=== PATIENT | male | born 1995 | race Caucasian/White ===

== ENCOUNTER 2020-06-19 08:02 | Emergency (ER) | payer OTHER, SELFPAY ==
[2020-06-19 08:10] VITALS: BP 153/82; PULSE 84; RESP 18; TEMP 36.9; O2SAT 100
--- NOTE | 2020-06-19 08:15 | ED.URI ---
HPI - URI/Sore Throat General Chief Complaint: Upper Respiratory Infection Stated Complaint: NASAL CONGESTION/ITCHY THROAT/EARACHE Time Seen by Provider: 06/19/20 08:16 Source: patient Mode of arrival: ambulatory Limitations: no limitations History of Present Illness HPI Narrative: Torres Nolen is a 25 yo male with symptoms of L ear pain (resolved), congestion, tickle in throat since Sat. Has taken Tylenol cold/flu with no relief. States he had difficulty laying flat last night and sleeping Related Data Allergies Allergy/AdvReac Type Severity Reaction Status Date / Time amoxicillin Allergy Unknown Verified 06/19/20 08:17 Penicillins Allergy Unknown Verified 06/19/20 08:17 Review of Systems Review of Systems: Narrative: CONSTITUTIONAL: Denies fever, chills, sweats. EYES: Denies visual changes, redness, discharge. ENT: Denies rhinorrhea, has congestion, sore throat, had left otalgia. CARDIOVASCULAR: Denies chest pain, palpitations, edema. RESPIRATORY: Denies dyspnea, wheezing, cough GASTROINTESTINAL: Denies abdominal pain, nausea, vomiting, diarrhea. GENITOURINARY: Denies dysuria, hematuria, abnormal discharge SKIN: Denies rash or itching. NEUROLOGIC: Denies numbness, or focal weakness. PSYCHIATRIC: Denies anxiety or depression. [facility] Past Medical History Medical History No acute medical problems Family History Family History Other No acute medical problems Social History Social History (Updated 06/19/20 @ 08:45 by Lori Sofia CNP) Smoking packs per day: 1.0 Smoking cigarettes per day: 20.0 Smoking status: Current every day smoker Alcohol intake: current Comments At time of signature, I agree with nursing past medical, surgical, social and family history. There is no relevant family history pertinent to the presenting complaint. Exam Narrative: Exam Narrative: GENERAL: This is a well-nourished, well-developed patient, in mild distress. HEAD: normocephalic, atraumatic. EYES:Sclera clear/white. Vision is grossly intact. EARS: External ears normal, auditory canals clear on R, on L cotton in canal, erythematous without drainage, TMs normal without perforation. Hearing grossly intact. NOSE: External nose normal without nasal discharge, nares with redness, mild rhinorrhea. THROAT: Mucous membranes moist, posterior pharynx pink moist NECK: Neck supple, non-tender CARDIOVASCULAR: Regular rate and rhythm without murmurs, gallops, or rubs. RESPIRATORY: Clear to auscultation. Breath sounds equal bilaterally. No wheezes, rales, or rhonchi. GASTROINTESTINAL: Abdomen soft, non-tender, SKIN: warm, intact with no suspicious lesions or rash, good texture and turgor. NEURO: awake, alert, and oriented to person, place and time. There were no obvious focal neurologic abnormalities. Steady gait EXTREMITIES: Normal range of motion. BACK: Nontender without deformity Course Course Emergency Course: Patient presents with resolved left ear pain but feels ears has stuffiness, sinus drainage Remove cotton from last year will start on steroids, Zyrtec, eardrops-start to use Flonase once the steroids are completed Referred to primary care Vital Signs Vital signs: Vital Signs Temperature 98.4 F 06/19/20 08:10 Pulse Rate 84 06/19/20 08:10 Respiratory Rate 18 06/19/20 08:10 Blood Pressure 153/82 H 06/19/20 08:10 Pulse Oximetry 100 06/19/20 08:10 Temperature 98.4 F 06/19/20 08:10 Pulse Rate 84 06/19/20 08:10 Respiratory Rate 18 06/19/20 08:10 Blood Pressure 140/88 06/19/20 08:47 Pulse Oximetry 100 06/19/20 08:10 Procedures Foreign Body Removal Foreign Body #1: Foreign Body Removal Date: 06/19/20 Foreign Body Removal Time: 08:30 Site: ear Description of foreign body: other Technique: irrigation Confirmed by:: direct visualizat
[2020-06-19 08:47] VITALS: BP 140/88
== END 2020-06-19 09:07 | disposition home or self-care (01) ==
PROVIDERS: Emergency Provider Nurse Practitioner
DX: T16.2XXA Foreign body in left ear, initial encounter (principal); J06.9 Acute upper respiratory infection, unspecified; F17.210 Nicotine dependence, cigarettes, uncomplicated
CPT/HCPCS: 99213; G0463

== ENCOUNTER 2020-10-26 10:15 | Emergency (ER) | payer OTHER, SELFPAY ==
[2020-10-26 10:22] VITALS: BP 133/69; PULSE 80; RESP 18; TEMP 36.9; O2SAT 100
--- NOTE | 2020-10-26 10:34 | ED.GENADULT ---
HPI - General Adult General Chief complaint: Ear Stated complaint: Bleeding Eardrum/Weakness Time Seen by Provider: 10/26/20 10:35 Source: patient Mode of arrival: ambulatory Limitations: no limitations History of Present Illness HPI narrative: 25-year-old male patient presents to the [facility] with complaints of right ear pain that started yesterday and states this morning it started bleeding and has increase in pain. Patient denies any fevers, body aches or chills. Denies any runny nose or stuffy nose. Patient denies taking anything for his symptoms since they started. Patient denies any trauma to the ear that he is aware of. Related Data Allergies Allergy/AdvReac Type Severity Reaction Status Date / Time amoxicillin Allergy Unknown Verified 10/26/20 10:29 Penicillins Allergy Unknown Verified 10/26/20 10:29 Review of Systems Review of Systems: Narrative: CONSTITUTIONAL: Denies fever, chills, or sweats. EYES: Denies visual changes, redness, or discharge. ENT: Denies rhinorrhea, congestion, sore throat, positive right otalgia with bleeding. CARDIOVASCULAR: Denies chest pain, palpitations, or edema. RESPIRATORY: Denies cough or dyspnea. GASTROINTESTINAL: Denies abdominal pain, nausea, vomiting, or diarrhea. GENITOURINARY: Denies dysuria or hematuria. SKIN: Denies rash or itching. MUSCULOSKELETAL: Denies back pain, joint pain, or myalgia. NEUROLOGIC: Denies headache, numbness, or weakness. PSYCHIATRIC: Denies anxiety or depression. [facility] Past Medical History Medical History No acute medical problems Family History Family History Other No acute medical problems Social History Social History Smoking packs per day: 1.0 Smoking cigarettes per day: 20.0 Smoking status: Current every day smoker Alcohol intake: current Comments At the time of my signature I agree with nursing past medical history, surgical, social, and family history. There is no relevant family history pertinent to the presenting complaint. Exam Narrative: Exam Narrative: GENERAL: Well-appearing, well-nourished, and in no acute distress. HEAD: Normocephalic, atraumatic. EYES: PERRLA and EOMI. ENT: Nares clear, no rhinorrhea or epistaxis. Mucous membranes moist. Posterior pharynx with no erythema, tonsillar edema, exudates or lesions present. The left TM does have some erythema, little bit of bulging with some fluid noted behind the eardrum. The right ear does have some blood in the canal and it does appear that there is a perforation into the eardrum. NECK: Supple. No lymphadenopathy CHEST: Clear to auscultation. No respiratory distress. HEART: Regular rate and rhythm. No murmur heard. Normal peripheral pulses. ABDOMEN: Soft, nontender, nondistended, normal active bowel sounds. EXTREMITIES: Normal range of motion. No edema. SKIN: Warm, dry, no rash. NEURO: No focal deficits. Alert and oriented x3. Course Vital Signs Vital signs: Vital Signs Temperature 36.9 C 10/26/20 10:22 Pulse Rate 80 10/26/20 10:22 Respiratory Rate 18 10/26/20 10:22 Blood Pressure 133/69 10/26/20 10:22 Pulse Oximetry 100 10/26/20 10:22 Temperature 36.9 C 10/26/20 10:22 Pulse Rate 80 10/26/20 10:22 Respiratory Rate 18 10/26/20 10:22 Blood Pressure 133/69 10/26/20 10:22 Pulse Oximetry 100 10/26/20 10:22 Vital signs reviewed Medical Decision Making Differential Diagnosis Differential Diagnosis: Differential diagnosis: Otitis media, otitis externa, perforated TM, infection of the outer ear, foreign body or cerumen impaction, ruptured TM, acute mastoiditis, ligament otitis externa, dehydration, pneumonia, sepsis, dental or intraoral infection, TMJ dysfunction Discussed with patient it does look like he has bilateral ear infection with a perforation of the right eard
== END 2020-10-26 10:44 | disposition home or self-care (01) ==
PROVIDERS: Emergency Provider Nurse Practitioner Family
DX: H66.93 Otitis media, unspecified, bilateral (principal); H72.91 Unspecified perforation of tympanic membrane, right ear; F17.210 Nicotine dependence, cigarettes, uncomplicated
CPT/HCPCS: 99213; G0463

== ENCOUNTER 2024-01-13 16:24 | Emergency (ER) | payer OTHER, SELFPAY | END 2024-01-13 17:03 | disposition left against medical advice (07) | LOC: ANHED 16:41 | DX: Z53.21 Procedure and treatment not carried out due to patient leaving prior to being seen by health care provider (principal) | CPT/HCPCS: 99199 ==